=== PATIENT | female | born 1995 | race Caucasian/White ===

== ENCOUNTER 2017-06-06 21:27 | Emergency (ER) | payer BC ==
[~2017-06-06] VITALS: Ht 152.4 cm; Wt 55.0 kg
[~2017-06-06 21:27] MED LIST: ACET325T33 PO; TYLENOL
[2017-06-06 21:50] VITALS: Ht 152.4 cm; Wt 55.0 kg
[2017-06-07] MEDS ORDERED: LORAZEPAM 2 MG INJ IM ONE
--- NOTE | 2017-06-07 00:26 | ERD ---
ER Documentation Chief Complaint Chief Complaint RT-SIDED BODY NUMBNESS/PAIN X 1 WEEK, DX OF ANXIETY HPI 22-year-old female with a history of anxiety presenting to the emergency department complaining of right-sided numbness of her body for the past week. Patient states that she was recently diagnosed with anxiety for the past couple weeks. Patient denies any other neuro deficits. She denies taking any medications. Denies chest pain, shortness of breath ROS All systems reviewed and are negative except as per history of present illness. Medications Home Meds Active Scripts Acetaminophen* (Tylenol*) 325 Mg Tablet, 1 TAB PO Q6 Y for PAIN AND OR ELEVATED TEMP, #20 TAB Prov:SHARON CORONA PA-C 04/23/16 Reported Medications [Tylenol] No Conflict Check 09/12/10 Allergies Allergies: Coded Allergies: No Known Allergy (Unverified , 04/23/16) PMhx/Soc History of Surgery: No Anesthesia Reaction: No Hx Neurological Disorder: No Hx Respiratory Disorders: No Hx Cardiac Disorders: No Hx Psychiatric Problems: Yes (Anxiety D/O) Hx Miscellaneous Medical Probl: Yes (Miscarriages) Hx Alcohol Use: Yes Hx Substance Use: No Hx Tobacco Use: No Physical Exam Vitals Vital Signs Date Time Temp Pulse Resp B/P Pulse Ox O2 Delivery O2 Flow Rate FiO2 06/06/17 21:50 99.5 90 18 139/68 100 Physical Exam GENERAL: well-developed/well-nourished, in no apparent distress, non-toxic appearing HENT: NC/AT, bilateral tympanic membrane is normal with good cone of light, nares patent, oropharynx clear without exudates EYES: Conjunctiva normal, PERRLA, EOMI, no nystagmus noted NECK: Supple, no lymphadenopathy PULM: CTA bilaterally, no rales, rhonchi, or wheezing heard CV: Normal S1S2, RRR, good capillary refill GI: Soft, non-distended, normal bowel sounds, non-tender BACK: No midline tenderness, no masses, No CVAT EXT: No clubbing, cyanosis, or edema NEURO: Alert and orientated to person, place, and time. CN II-IIX intact. Gait and coordination were normal. Hand sulfur chloride operator strength were equal and within normal limits SKIN: Intact, normal turgor PSYCH: Normal mood and mentation, patient denied SI Results 24 hrs Current Medications Medications (Trade) Dose Ordered Sig/Davey Route PRN Reason Start Time Stop Time Status Last Admin Dose Admin Lorazepam (Ativan) 1 mg ONCE ONCE IM 06/07/17 00:00 06/07/17 00:01 DC 06/07/17 00:00 Procedures/MDM This is a 22-year-old female presenting to the emergency department with right- sided body numbness for the past week which is likely due to body's reaction to anxiety. No evidence of CVA. Patient is stable to be discharged home to follow -up with primary care physician. Patient was requesting a CT of her head, I have discussed with her the risks of radiation however patient stated that she still wanted a CT of the head. Which CT of the head did not show any evidence of acute pathology. Patient was found to have a small arachnoid cyst, I have discussed with patient to follow up with neurology. Patient was given Ativan in the ED with some improvement. She stable to be discharged home. Return precautions given Departure Diagnosis: Primary Impression: Numbness Condition: Stable Patient Instructions: Your Body's Response to Anxiety, Paraesthesias Referrals: DORENE RAMIREZ (PCP) Additional Instructions: FOLLOW UP WITH YOUR PRIMARY CARE PHYSICIAN TOMORROW.Return to this facility if you are not improving as expected. Return to this facility if you are not improving as expected. PHIL BLANCO PA-C Jun 07, 2017 00:26
--- NOTE | 2017-06-07 00:28 | RADRPT ---
PROCEDURE: CT Brain without contrast. CLINICAL INDICATION: ROGERS, numbness. TECHNIQUE: A multiplanar CT of the brain was performed on a CT scanner utilizing axial imaging fro m the skull base through the vertex without IV contrast. The CTDIvol is 45.01 mGy and the DLP is 72 0.23 mGycm. One or more of the following dose reduction techniques were utilized: Automated exposu re control, adjustment of the mA and/or kV according to patient size, use of iterative reconstructio n technique. COMPARISON: None FINDINGS: No evidence of intracranial hemorrhage or abnormal extra-axial fluid collection. The brain parenchyma is normal attenuation morphology with preservation of fajardo white differentiatio n and age appropriate size of the ventricles and subarachnoid spaces. Retrocerebellar midline CSF sp kimberley most compatible with small arachnoid cyst. The basal cisterns, posterior fossa contents, brainstem, craniocervical junction, orbits, pituitary axis, paranasal sinuses, mastoid air cells, and calvarium are unremarkable. IMPRESSION: 1. No intracranial hemorrhage or acute intracranial abnormality. 2. Midline retrocerebellar CSF space most compatible with small arachnoid cyst. RPTAT:AAJJ Physician Aleida Date Time Electronically viewed and signed by Physician Aleida on 06/07/2017 00:28 ONE[place]/
== END 2017-06-07 01:35 | disposition home or self-care (01) ==
LOC: FTE 21:27
DX: R20.0 Anesthesia of skin (principal)
CPT/HCPCS: 70450; 96372; 99285; J2060

== ENCOUNTER 2018-05-07 15:07 | Emergency (ER) | END 2018-05-07 18:52 | disposition home or self-care (01) ==